=== PATIENT | female | born 1990 | race Caucasian/White ===

== ENCOUNTER 2016-10-18 17:05 | Emergency (ER) | payer OTHER ==
[2016-10-18 17:40] VITALS: BP 125/78
--- NOTE | 2016-10-18 18:17 | UC ---
Respiratory Complaint HPI - HPI Summary HPI Summary: pt c/o of cough, "burning chest", nasal congestion and fatigue X 2 days. Also, c/o pruritic scattered rash on back X 3 months. - History of Current Complaint Chief Complaint: UCGeneralIllness Stated Complaint: COUGH,EARS,ST Time Seen by Provider: 10/18/16 17:39 Hx Obtained From: Patient Hx Last Menstrual Period: 09/29/16 ?: No Onset/Duration: Gradual Onset, Lasting Weeks Timing: Constant Severity Initially: Mild Severity Currently: Mild Character: Cough: Nonproductive Aggravating Factors: Deep Breaths, Recumbent Position Associated Signs And Symptoms: Positive: URI, Nasal Congestion - Allergies/Home Medications Allergies/Adverse Reactions: Allergies Allergy/AdvReac Type Severity Reaction Status Date / Time Penicillins Allergy Swelling Verified 10/18/16 17:40 PMH/Surg Hx/FS Hx/Imm Hx Previously Healthy: Yes Endocrine History Of: Reports: Thyroid Disease - Surgical History Surgical History: Yes Surgery Procedure, Year, and Place: thyroidectomy/partial - Family History Known Family History: Negative: Cardiac Disease, Hypertension, Diabetes, Renal Disease - Social History Lives: With Family Alcohol Use: Rare Substance Use Type: None Smoking Status (MU): Never Smoked Tobacco - Immunization History Most Recent Influenza Vaccination: [id number] Review of Systems Constitutional: Fatigue Skin: Rash Eyes: Negative ENT: Negative Respiratory: Cough Cardiovascular: Chest Pain - with cough Gastrointestinal: Negative Genitourinary: Negative Motor: Negative Neurovascular: Negative Musculoskeletal: Myalgia Neurological: Negative Psychological: Negative All Other Systems Reviewed And Are Negative: Yes Physical Exam Triage Information Reviewed: Yes Appearance: Ill-Appearing Vital Signs: Initial Vital Signs Temp 99.3 F 10/18/16 17:36 Pulse 83 10/18/16 17:36 Resp 17 10/18/16 17:36 BP 125/78 10/18/16 17:36 Pulse Ox 100 10/18/16 17:36 Vital Signs Reviewed: Yes ENT Exam: Other ENT: Positive: Nasal congestion Neck exam: Normal Respiratory Exam: Other Respiratory: Positive: Wheezing Cardiovascular Exam: Normal Musculoskeletal Exam: Normal Neurological Exam: Normal Psychological Exam: Normal Skin Exam: Other - scattered, raised papules on back Skin: Positive: rashes UC Diagnostic Evaluation - Laboratory O2 Sat by Pulse Oximetry: 100 Respiratory Course/Dx - Differential Dx/Diagnosis Differential Diagnosis/HQI/PQRI: Bronchitis, Influenza, Other - folliculitis Provider Diagnoses: folliculitis. Bronchitis Discharge - Discharge Plan Condition: Stable Disposition: HOME Prescriptions: Benzonatate CAP* [Tessalon CAP*] 100 mg PO TID PRN #30 cap PRN Reason: Cough DOXYcycline CAP(*) [DOXYcycline 100MG CAP(*)] 100 mg PO BID #14 cap predniSONE TAB* [Deltasone TAB*] 30 mg PO DAILY #12 tab Patient Education Materials: Acute Bronchitis (ED), Folliculitis (ED) Referrals: Ling Fatima MD [Primary Care Provider] -
== END 2016-10-18 18:26 | disposition home or self-care (01) ==
LOC: UCCORT 17:05
DX: J40 Bronchitis, not specified as acute or chronic (principal); L73.9 Follicular disorder, unspecified; E07.9 Disorder of thyroid, unspecified; Z88.0 Allergy status to penicillin
CPT/HCPCS: 99212; G0463

== ENCOUNTER 2017-02-20 11:12 | Emergency (ER) | payer OTHER ==
--- NOTE | 2017-02-20 14:10 | ED ---
Back Pain - HPI Summary HPI Summary: Patient presents to ED with CC of right shoulder and right back pain which has been getting worse over the past 2 days. Back pain has been present for several months, but shoulder pain is new. Hx includes scoliosis without surgery or interventions. She is not seen by ortho for this. 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 Pain is muscular and rated 8/10. Worse with movement , better with rest. Ibuprofen is not helping. She is denying midline back pain. Denies urinary symptoms, neck pain or LEWIS. - History of Current Complaint Chief Complaint: EDBackInjuryPain Stated Complaint: BACK PAIN Time Seen by Provider: 02/20/17 11:29 Hx Obtained From: Patient Hx Last Menstrual Period: 09/29/16 Onset/Duration: Sudden Onset Onset/Duration: Started Days Ago Timing: Intermittent Back Pain Location: Is Discrete @ - right shoulder and right lower back Severity Initially: Moderate Severity Currently: Moderate Pain Intensity: 5 Pain Scale Used: 0-10 Numeric Character: Sharp, Aching Aggravating Symptom(s): Movement, Bending Alleviating Symptom(s): Rest, Position Associated Signs And Symptoms: Positive: Negative - Risk Factors AAA Risk Factors: Negative TAD Risk Factors: Negative Cauda Equina Risk Factors: Negative Epidural Abscess Risk Factors: Negative - Allergies/Home Medications Allergies/Adverse Reactions: Allergies Allergy/AdvReac Type Severity Reaction Status Date / Time Penicillins Allergy Swelling Verified 10/18/16 17:40 PMH/Surg Hx/FS Hx/Imm Hx Previously Healthy: Yes Endocrine/Hematology History: Reports: Hx Thyroid Disease History: Reports: Other Problems/Disorders - UTI - Surgical History Surgery Procedure, Year, and Place: thyroidectomy/partial Hx Anesthesia Reactions: No - Immunization History Hx Pertussis Vaccination: No Immunizations Up to Date: Yes Infectious Disease History: No Infectious Disease History: Denies: Traveled Outside the [place] in Last 30 Days - Family History Known Family History: Negative: Cardiac Disease, Hypertension, Diabetes, Renal Disease - Social History Occupation: Employed Full-time Lives: With Family Alcohol Use: Rare Hx Substance Use: No Substance Use Type: Reports: None Smoking Status (MU): Never Smoked Tobacco Review of Systems Constitutional: Negative Eyes: Negative Cardiovascular: Negative Respiratory: Negative Positive: Arthralgia, Myalgia Skin: Negative Neurological: Negative All Other Systems Reviewed And Are Negative: Yes Physical Exam Triage Information Reviewed: Yes Vital Signs On Initial Exam: Initial Vitals Temp Pulse Resp BP Pulse Ox 98.7 F 88 18 123/70 100 02/20/17 11:15 02/20/17 11:15 02/20/17 11:15 02/20/17 11:15 02/20/17 11:15 Vital Signs Reviewed: Yes Appearance: Positive: Well-Appearing, Well-Nourished Skin: Positive: Warm, Skin Color Reflects Adequate Perfusion Head/Face: Positive: Normal Head/Face Inspection Eyes: Positive: EOMI, SCARLETT ENT: Positive: Normal ENT inspection Neck: Positive: Supple, Nontender, No Lymphadenopathy Respiratory/Lung Sounds: Positive: Clear to Auscultation, Breath Sounds Present Cardiovascular: Positive: Normal, RRR, Pulses are Symmetrical in both Upper and Lower Extremities Musculoskeletal: Positive: Limited @, Pain @ - right shoulder and right lower back pain Neurological: Positive: Sensory/Motor Intact, Alert, Oriented to Person Place, Time, Speech Normal Psychiatric: Positive: Normal AVPU Assessment: Alert Diagnostics - Vital Signs Vital Signs Temp Pulse Resp BP Pulse Ox 02/20/17 11:28 98.7 F 88 18 123/70 100 02/20/17 11:15 98.7 F 88 18 123/70 100 - Laboratory Lab Statement: Any lab studies that have been ordered have been reviewed, and results considered in the medical decision making process. Back Pain Course/Dx - Course Course Of Treatment: Right lower back pain with right shoulder pain without injury or trauma. 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 Likely overuse injury and patient is encouraged Ibuprofen 600mg three times daily with meals for pain. Flexiril 10mg twice daily as needed for muscle pain and spasms. Note give for 3 days out of work. Massage, moist heat and change of daily habits at work. Return precautions given. Educated patient regarding back injuries and healing time and the need for further imaging if discomfort is present for > 6 weeks. - Diagnoses Differential Diagnosis/HQI/PQRI: Positive: Herniated Disc, Osteoporosis, Strain , Sprain Provider Diagnoses: Chronic overuse injury to soft tissues Discharge - Discharge Plan Condition: Stable Disposition: HOME Prescriptions: Cyclobenzaprine TAB* [Flexeril TAB*] 10 mg PO BID PRN #14 tab MDD 2 PRN Reason: Pain Patient Education Materials: Tendinitis (ED), Back Pain (ED) Forms: *Work Release Referrals: JAYDEN Orozco [Primary Care Provider] - Additional Instructions: Dx. Muscle Strain Flexeril: This medication is a muscle relaxant and can help relieve muscle spasms, muscle strain, or pain sensations. Flexeril can cause side effects that may impair your thinking or reactions. Be careful if you drive or do anything that requires you to be awake and alert. Avoid drinking alcohol, which can increase some of the side effects of Flexeril. Ibuprofen 600mg three times daily with meals for discomfort. Return to ED if symptoms worsen or fail to improve, notice worsening swelling, warmth or redness around the joint, develop fever, or pain is uncontrolled with OTC medications. Moist heat to the area for comfort. Warm showers or baths may improve symptoms. It is important to remain mobile as tolerated to prevent stiffening of the joints and delay healing. Follow up with your PCP. If symptoms remain for > 6 weeks, please seek special medical attention from an orthopedic physician.
[2017-02-20 14:15] VITALS: BP 129/89
== END 2017-02-20 14:14 | disposition home or self-care (01) ==
LOC: ED 11:12
DX: M25.511 Pain in right shoulder (principal); M54.9 Dorsalgia, unspecified
CPT/HCPCS: 99281

== ENCOUNTER 2017-03-25 19:40 | Emergency (ER) | payer OTHER ==
[2017-03-25 20:02] VITALS: BP 117/66
[2017-03-25] MEDS ORDERED: Ketorolac INJ* 60 MG/2 ML VIAL IM ONE (20:46)
--- NOTE | 2017-03-25 20:51 | UC ---
Abdominal Pain Female HPI - HPI Summary HPI Summary: pt presents with c/o LLQ pain and abdominal bloating and left flank pain, urinary frequency and urgency X 4 days. Pt denies any unusual vaginal discharge. Denies constipation, loose stools, blood stool, or history of GI disorder. - History of Current Complaint Chief Complaint: UCAbdominalPain Stated Complaint: ABDOMINAL PAIN Time Seen by Provider: 03/25/17 20:24 Hx Obtained From: Patient Hx Last Menstrual Period: 03/04/17 ?: No Onset/Duration: Gradual Onset, Lasting Days - 4 Timing: Constant Severity Initially: Mild Severity Currently: Moderate Location: Discrete At: LLQ Radiates: Yes Radiates to: Flank, LLQ Character: Aching, Burning, Colicy, Cramping, Dull Aggravating Factor(s): Movement Alleviating Factor(s): Nothing Associated Signs and Symptoms: Positive: Back Pain, Nausea Allergies/Adverse Reactions: Allergies Allergy/AdvReac Type Severity Reaction Status Date / Time Penicillins Allergy Swelling Verified 03/25/17 19:57 Home Medications: Home Medications NK [No Home Medications Reported] 03/25/17 [History Confirmed 03/25/17] PMH/Surg Hx/FS Hx/Imm Hx Previously Healthy: Yes - ovarian cyst and kidney stones - Surgical History Surgical History: Yes Surgery Procedure, Year, and Place: partial thyroidectomy, tubal - Family History Known Family History: Negative: Cardiac Disease, Hypertension, Diabetes, Renal Disease - Social History Lives: With Family Alcohol Use: Rare Substance Use Type: None Smoking Status (MU): Never Smoked Tobacco - Immunization History Most Recent Influenza Vaccination: [id number] Review of Systems Constitutional: Negative Skin: Negative Eyes: Negative ENT: Negative Respiratory: Negative Cardiovascular: Negative Gastrointestinal: Abdominal Pain, Nausea, Other - bloating Genitourinary: Frequency, Urgency Motor: Negative Neurovascular: Negative Musculoskeletal: Negative Neurological: Negative Psychological: Negative All Other Systems Reviewed And Are Negative: Yes Physical Exam Triage Information Reviewed: Yes Appearance: Pain Distress Vital Signs: Initial Vital Signs Temp 99.6 F 03/25/17 19:57 Pulse 100 03/25/17 19:57 Resp 18 03/25/17 19:57 BP 117/66 03/25/17 19:57 Pulse Ox 99 03/25/17 19:57 Vital Signs Reviewed: Yes Eye Exam: Normal Neck exam: Normal Respiratory Exam: Normal Cardiovascular Exam: Normal Abdominal Exam: Other Abdomen Description: Positive: Soft, CVA Tenderness (L), Other: - bloating, generalized tenderness, left flank pain Bowel Sounds: Positive: Present Musculoskeletal Exam: Normal Neurological Exam: Normal Psychological Exam: Normal Skin Exam: Normal Abd Pain Female Course/Dx - Differential Dx/Diagnosis Differential Diagnosis: Constipation, Ovarian Cyst, Urinary Tract Infection, Other - kidney stone Provider Diagnoses: abdominal pain. possible ovarian cyst Discharge - Discharge Plan Condition: Stable Disposition: HOME Patient Education Materials: Acute Abdominal Pain (ED), Gas and Bloating (ED) Referrals: JAYDEN Orozco [Primary Care Provider] - Additional Instructions: Please seek care immediately if your symptoms worsen.
--- NOTE | 2017-03-25 21:58 | RAD ---
INDICATION: Left lower quadrant pain x4 days COMPARISON: CT abdomen pelvis dated July 21, 2016. TECHNIQUE: 2 views the abdomen were obtained. FINDINGS: There are no acute bony or soft tissue abnormalities. There is a large amount of stool throughout the length of the colon without pathologic dilatation. There is no evidence of free peritoneal gas. There are no obvious coarse calcifications overlying the expected location of the bilateral collecting systems or ureters. IMPRESSION: THERE IS A LARGE AMOUNT OF STOOL THROUGHOUT THE LENGTH OF THE COLON. PLEASE CORRELATE TO SIGNS OR SYMPTOMS OF CONSTIPATION.
== END 2017-03-25 21:37 | disposition home or self-care (01) ==
LOC: UCCORT 19:40
DX: R10.32 Left lower quadrant pain (principal)
CPT/HCPCS: 74000; 81003; 84702; 96372; 99211; G0463; J1885

== ENCOUNTER 2017-05-11 20:33 | Emergency (ER) | payer OTHER ==
[2017-05-11 20:41] VITALS: BP 144/79
[2017-05-11] MEDS ORDERED: HYDROcodone/ACETAMIN 5-325 MG* 1 TAB PO ONE ×2 (20:46→21:34)
[2017-05-11] MEDS ORDERED: Ketorolac INJ* 60 MG/2 ML VIAL IV PUSH ONE (20:46)
[2017-05-11] MEDS ORDERED: Silver Sulfadiazine 1%* 20 GM TOPICAL ONE (21:24)
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
== END 2017-05-11 21:58 | disposition home or self-care (01) ==
LOC: UCCORT 20:33
DX: T23.161A Burn of first degree of back of right hand, initial encounter (principal); T31.10 Burns involving 10-19% of body surface with 0% to 9% third degree burns; X10.2XXA Contact with fats and cooking oils, initial encounter; Y93.G3 Activity, cooking and baking; Y92.9 Unspecified place or not applicable; Z88.0 Allergy status to penicillin; E89.0 Postprocedural hypothyroidism
CPT/HCPCS: 16025; 96372; 99213; A9270-GY; G0463; J1885

== ENCOUNTER → 2017-08-19 19:38 | Emergency (ER) | payer OTHER ==
[2017-08-19 21:27] VITALS: BP 111/60
--- NOTE | 2017-08-19 21:52 | UC ---
Throat Pain/Nasal Hima HPI - HPI Summary HPI Summary: Pt c/o sore throat, generalized malaise, abdominal pain and diarrhea, 3-4 times per day X 4 days. - History of Current Complaint Chief Complaint: UCGeneralIllness Stated Complaint: ST, DIARRHEA Time Seen by Provider: 08/19/17 21:32 Hx Obtained From: Patient Hx Last Menstrual Period: CURRENT ?: No Onset/Duration: Gradual Onset, Lasting Days, Still Present Severity: Mild Cough: Nonproductive Associated Signs & Symptoms: Positive: Dysphagia, Other - chills - Epiglottits Risk Factors Epiglottis Risk Factors: Negative - Allergies/Home Medications Allergies/Adverse Reactions: Allergies Allergy/AdvReac Type Severity Reaction Status Date / Time Penicillins Allergy Swelling Verified 08/19/17 21:27 Home Medications: Home Medications Ibuprofen TAB* [Motrin TAB* 800 MG] 800 mg PO Q6H PRN 08/19/17 [History Confirmed 08/19/17] PMH/Surg Hx/FS Hx/Imm Hx Previously Healthy: Yes - Surgical History Surgical History: Yes Surgery Procedure, Year, and Place: partial thyroidectomy, tubal - Family History Known Family History: Negative: Cardiac Disease, Hypertension, Diabetes, Renal Disease - Social History Occupation: Employed Full-time Lives: With Family Alcohol Use: Rare Substance Use Type: None Smoking Status (MU): Former Smoker Have You Smoked in the Last Year: No When Did the Patient Quit Smoking/Using Tobacco: 2016 - Immunization History Most Recent Influenza Vaccination: [id number] Review of Systems Constitutional: Chills, Fatigue Skin: Negative Eyes: Negative ENT: Sore Throat Respiratory: Cough Cardiovascular: Negative Gastrointestinal: Diarrhea Genitourinary: Negative Motor: Negative Neurovascular: Negative Musculoskeletal: Negative Neurological: Headache Psychological: Negative Is Patient Immunocompromised?: No All Other Systems Reviewed And Are Negative: Yes Physical Exam Triage Information Reviewed: Yes Appearance: Ill-Appearing Vital Signs: Initial Vital Signs Temp 98.2 F 08/19/17 21:24 Pulse 71 08/19/17 21:24 Resp 16 08/19/17 21:24 BP 111/60 08/19/17 21:24 Pulse Ox 99 08/19/17 21:24 Vital Signs Reviewed: Yes Eye Exam: Normal ENT Exam: Other ENT: Positive: Nasal congestion, Tonsillar swelling, Hoarse voice Dental Exam: Normal Neck exam: Normal Respiratory Exam: Normal Cardiovascular Exam: Normal Abdominal Exam: Normal Musculoskeletal Exam: Normal Neurological Exam: Normal Psychological Exam: Normal Skin Exam: Normal Throat Pain/Nasal Course/Dx - Differential Dx/Diagnosis Differential Diagnosis/HQI/PQRI: Influenza, Tonsillitis, URI Provider Diagnoses: viral syndrome. laryngitis Discharge - Discharge Plan Condition: Stable Disposition: HOME Prescriptions: Benzonatate CAP* [Tessalon 100 MG CAP*] 100 mg PO Q8H PRN #21 cap PRN Reason: Cough predniSONE TAB* [Deltasone TAB*] 20 mg PO DAILY #4 tab Patient Education Materials: Laryngitis (ED), Viral Syndrome (ED) Forms: *Work Release Referrals: JAYDEN Orozco [Primary Care Provider] - If Needed
== END | disposition home or self-care (01) ==
LOC: UCCORT 19:38
DX: B34.9 Viral infection, unspecified (principal); J04.0 Acute laryngitis; E89.0 Postprocedural hypothyroidism; Z88.0 Allergy status to penicillin; Z87.891 Personal history of nicotine dependence
CPT/HCPCS: 87651; 99212; G0463

== ENCOUNTER 2018-02-06 09:18 | Emergency (ER) | payer OTHER ==
--- NOTE | 2018-02-06 10:11 | ED ---
GI/ HPI - HPI Summary HPI Summary: Patient is a 27-year-old female who presents emergency department for urinary symptoms that started yesterday. Patient she is a history of frequent UTIs. Was last treated 3 months ago. She admits to urinary urgency, dysuria and bladder pressure. Admits to low back pain as well. Denies fever, chills, vomiting, diarrhea, hematuria, vaginal discharge or bleeding. No significant past medical history. Symptoms are mild in severity. Urination makes symptoms worse. Nothing makes symptoms better. History of tubal ligation. - History of Current Complaint Chief Complaint: EDUrogenitalProblems Time Seen by Provider: 02/06/18 09:36 Stated Complaint: POSSIBLE UTI Hx Obtained From: Patient Hx Last Menstrual Period: CURRENT Pain Intensity: 4 - Allergy/Home Medications Allergies/Adverse Reactions: Allergies Allergy/AdvReac Type Severity Reaction Status Date / Time Penicillins Allergy Anaphylatic Verified 02/06/18 09:26 Shock PMH/Surg Hx/FS Hx/Imm Hx Previously Healthy: Yes Endocrine/Hematology History: Reports: Hx Thyroid Disease History: Reports: Hx Kidney Stones, Other Problems/Disorders - UTI - Surgical History Surgery Procedure, Year, and Place: partial thyroidectomy, tubal Hx Anesthesia Reactions: No Infectious Disease History: No Infectious Disease History: Reports: Hx Shingles - 2006 Denies: Traveled Outside the [place] in Last 30 Days - Family History Known Family History: Negative: Cardiac Disease, Hypertension, Diabetes, Renal Disease - Social History Occupation: Employed Full-time Lives: With Family Alcohol Use: Rare Hx Substance Use: No Substance Use Type: Reports: None Smoking Status (MU): Former Smoker Have You Smoked in the Last Year: No Review of Systems Constitutional: Negative Negative: Fever, Chills Eyes: Negative ENT: Negative Cardiovascular: Negative Respiratory: Negative Negative: Cough Gastrointestinal: Negative Negative: Abdominal Pain, Vomiting, Diarrhea, Nausea Positive: dysuria, frequency, flank pain. Negative: discharge Psychological: Normal All Other Systems Reviewed And Are Negative: Yes Physical Exam Triage Information Reviewed: Yes Vital Signs On Initial Exam: Initial Vitals Temp Pulse Resp BP Pulse Ox 97.7 F 95 15 135/78 100 02/06/18 09:19 02/06/18 09:19 02/06/18 09:19 02/06/18 09:19 02/06/18 09:19 Vital Signs Reviewed: Yes Appearance: Positive: Well-Appearing - Patient lying in bed in no acute distress. Knees are pulled to chest. Skin: Positive: Warm, Dry Head/Face: Positive: Normal Head/Face Inspection Eyes: Positive: Normal, [place] Neck: Positive: Supple Respiratory/Lung Sounds: Positive: Clear to Auscultation, Breath Sounds Present Cardiovascular: Positive: Normal, RRR Abdomen Description: Positive: Other: - Abdomen soft throughout with pain to the suprapubic region and right and left lower quadrants. Musculoskeletal: Positive: Normal, Strength/ROM Intact Neurological: Positive: Normal, CN Intact II-III Psychiatric: Positive: Normal Diagnostics - Vital Signs Vital Signs Temp Pulse Resp BP Pulse Ox 02/06/18 09:19 97.7 F 95 15 135/78 100 - Laboratory Lab Statement: Any lab studies that have been ordered have been reviewed, and results considered in the medical decision making process. GIGU Course/Dx - Course Course Of Treatment: Patient presenting with dysuria and suprapubic pain. She is afebrile. Urinalysis today is negative for bacteria, leukocytes, nitrates. Results were discussed with patient. Discussed other etiologies of dysuria the patient was she notes she has been eating a lot of spicy foods. Will prescribe Pyridium for symptom relief. Advised increase fluids. To avoid foods high in onset, caffeine, alcohol, spice. Close follow-up with PCP if symptoms continue. Patient understands and agrees with plan. - Diagnoses Differential Diagnoses - Female: Bladder Dysfunction, Cervicitis, Cystitis, Urinary Tract Infection Provider Diagnoses: Dysuria Discharge - Sign-Out/Discharge Documenting (check all that apply): Discharge/Admit/Transfer - Discharge Plan Condition: Good Disposition: HOME Prescriptions: Phenazopyridine 200 mg (NF) [Pyridium 200 MG tab *] 200 mg PO TID 3 Days #9 tab Patient Education Materials: Dysuria (ED) Referrals: JAYDEN Orozco [Primary Care Provider] - Additional Instructions: Schedule follow up appointment with PCP if symptoms continue Take Pyridium as directed for symptom relief Increase fluids Can also take Tylenol or Motrin for discomfort as directed Avoid foods high in caffeine, alcohol, acid, spicy Return to ER if symptoms change or worsen - Billing Disposition and Condition Condition: GOOD Disposition: HOME
[2018-02-06 10:47] LABS: Urine Appearance Clear; Urine Blood Negative (Negative); Urine Color Yellow; Urine Ketones Negative (Negative); Urine Protein Negative (Negative); Urine Specific Gravity 1.017 (1.010-1.030); Urine Urobilinogen Negative (Negative)
[2018-02-06 11:48] VITALS: BP 122/77
== END 2018-02-06 11:46 | disposition home or self-care (01) ==
LOC: ED 09:18
DX: R30.0 Dysuria (principal); R39.15 Urgency of urination; Z87.440 Personal history of urinary (tract) infections; M54.5 Low back pain; E07.9 Disorder of thyroid, unspecified; Z87.442 Personal history of urinary calculi; Z88.0 Allergy status to penicillin; Z87.891 Personal history of nicotine dependence
CPT/HCPCS: 81003; 99282